=== PATIENT | female | born 1995 | race Caucasian/White ===

== ENCOUNTER 2019-10-16 19:30 | Emergency (ER) | payer MEDICAID ==
[~2019-10-16] VITALS: Ht 167.6 cm; Wt 78.9 kg
[2019-10-16 19:41] VITALS: BP 146/76
--- NOTE | 2019-10-16 21:00 | NUR ---
NO ANSWER IN LOBBY OR RESTROOM AT THIS TIME.
--- NOTE | 2019-10-16 21:10 | NUR ---
NO ANSWER IN LOBBY AT THIS TIME.
--- NOTE | 2019-10-16 21:21 | NUR ---
NO ANSWER IN LOBBY OR RESTROOM AT THIS TIME.
== END 2019-10-16 21:22 | disposition left against medical advice (07) ==
LOC: ED 21:15
DX: L02.31 Cutaneous abscess of buttock (principal)
CPT/HCPCS: 99281

== ENCOUNTER 2019-11-16 05:13 | Emergency (ER) | payer MEDICAID ==
[~2019-11-16] VITALS: Ht 167.6 cm; Wt 85.7 kg
[2019-11-16] MEDS ORDERED: LIDOCAINE-MPF 1%, 5ML ONE (05:27)
[2019-11-16] MEDS ORDERED: CEFAZOLIN 1,000 MG IM ONE (05:30)
[2019-11-16] MEDS ORDERED: LIDOCAINE 1%, 10ML INFIL ONE (05:30)
--- NOTE | 2019-11-16 05:34 | NUR ---
I&D SET UP AT BEDSIDE, LIDOCAINE PROVIDED FOR MD ADMINISTRATION. PATIENT UPDATED ON PLAN OF CARE.
[2019-11-16] MEDS ORDERED: CEFAZOLIN 1,000 MG ONE (05:35)
--- NOTE | 2019-11-16 05:47 | NUR ---
PATIENT GIVEN IM INJECTION, TOLERATED WELL. VERBALIZED UNDERSTANDING OF ANTIBIOTIC REACTION AND ANTIBIOTIC THERAPY.
--- NOTE | 2019-11-16 06:15 | NUR ---
PATIENT CLEARED FOR DISCHARGE. NO NOTED ACUTE DISTRESS. TOLERATED INTERVENTIONS WELL. PATIENT GIVEN SUPPLIES TO CARE FOR SELF PROPERLY, PATIENT CURRENTLY HOMELESS. PATIENT VERBALIZED UNDERSTANDING OF ANTIBIOTIC THERAPY, AND FOLLOW UP INSTRUCTIONS WITHIN 1-2 DAYS. PATIENT AMBULATORY TO DISCHARGE DESK WITH FAMILY.
[2019-11-16 06:25] VITALS: BP 134/86
== END 2019-11-16 06:27 | disposition home or self-care (01) ==
LOC: ED 05:31
DX: L02.413 Cutaneous abscess of right upper limb (principal); L03.011 Cellulitis of right finger; F17.210 Nicotine dependence, cigarettes, uncomplicated
CPT/HCPCS: 26010; 73130; 96372; 99283; 99406; J0690; J3490